=== PATIENT | female | born 1985 | race Caucasian/White ===

== ENCOUNTER 2023-10-06 18:59 | Emergency (ER) | payer OTHER ==
[~2023-10-06] VITALS: Ht 167.6 cm; Wt 70.5 kg
[~2023-10-06 18:59] MED LIST: NAPROSYN500 MG PO
[2023-10-06 19:01] VITALS: TEMP 98.7
[2023-10-06] MEDS ORDERED: Ondansetron 4 MG/2 ML VIAL IV ONE (19:30)
[2023-10-06] MEDS ORDERED: Morphine 4 MG/ML VIAL IV ONE (19:30)
[2023-10-06 19:54] LABS: BASO # 0.1 K/mm3 (0.0-0.2); BASO % 0.7 % (0.0-2.0); EOS # 0.4 K/mm3 (0.0-0.7); EOS % 4.3 % (0.0-4.0); GRAN # 5.8 K/mm3 (1.4-6.5); GRAN % 64.2 % (42.2-75.2); HEMATOCRIT 37.3 % (37.0-47.0); HEMOGLOBIN 12.4 g/dl (12.5-16.0); LYMPH # 2.2 K/mm3 (1.2-3.4); LYMPH % 24.6 % (20.0-51.0); MEAN CELL VOLUME 95 fl (80.0-100.0); MEAN CORPUSCULAR HEMOGLOBIN 32 pg (27-31); MEAN CORPUSCULAR HGB CONC 33 g/dl (33.0-37.0); MEAN PLATELET VOLUME 8.5 fl (7.4-10.4); MONO # 0.6 K/mm3 (0.1-0.6); PLATELET COUNT 178 K/mm3 (130-400); RED BLOOD COUNT 3.92 M/mm3 (4.10-5.30); REDCELL DISTRIBUTION WIDTH-CV 12.5 % (11.5-14.5)
[2023-10-06 20:07] LABS: BILIRUBIN,TOTAL 0.6 mg/dL (0.2-1.2); C-REACTIVE PROTEIN 0.55 mg/dL (0.00-0.50); CALCIUM 9.4 mg/dL (8.4-10.2); CREATININE, serum 0.81 mg/dL (0.57-1.11); POTASSIUM 3.4 mEq/L (3.5-4.5); TOTAL PROTEIN 6.6 g/dl (6.2-8.1)
[2023-10-06 20:30] LABS: URINE APPEARANCE CLEAR (CLEAR/HAZY); URINE BLOOD NEGATIVE (NEGATIVE); URINE COLOR Dark Yellow (YELLOW); URINE GLUCOSE NEGATIVE (NEGATIVE); URINE KETONE 1+ (NEGATIVE); URINE NITRATE NEGATIVE (NEGATIVE); URINE PROTEIN(semi-quant) TRACE (NEGATIVE)
[2023-10-06 20:45] LABS: COLLECTION METHOD CLEAN CATCH
[2023-10-06 22:00] VITALS: BP 106/73; PULSE 65
== END 2023-10-06 22:00 | disposition home or self-care (01) ==
LOC: COL.ER 18:59
PROVIDERS: Family Medicine
DX: N83.299 Other ovarian cyst, unspecified side (principal); Z91.040 Latex allergy status
CPT/HCPCS: J2270; J2405

== ENCOUNTER 2023-10-08 07:16 | Emergency (ER) | payer OTHER ==
[~2023-10-08] VITALS: Ht 167.6 cm; Wt 70.5 kg
[2023-10-08 07:28] VITALS: TEMP 98.2
[2023-10-08] MEDS ORDERED: MOBIC15 MG PO (07:32)
[2023-10-08] MEDS ORDERED: Ondansetron 4 MG/2 ML VIAL IV PRN (08:00)
[2023-10-08] MEDS ORDERED: Morphine 4 MG/ML VIAL IV PRN (08:00)
[2023-10-08] MEDS ORDERED: NS 1,000 ML IV ONE (08:00)
[2023-10-08 08:19] LABS: BASO # 0.1 K/mm3 (0.0-0.2); BASO % 1.2 % (0.0-2.0); EOS # 0.3 K/mm3 (0.0-0.7); EOS % 6.3 % (0.0-4.0); GRAN # 2.9 K/mm3 (1.4-6.5); GRAN % 57.1 % (42.2-75.2); HEMOGLOBIN 12.3 g/dl (12.5-16.0); LYMPH # 1.2 K/mm3 (1.2-3.4); LYMPH % 24.5 % (20.0-51.0); MEAN CELL VOLUME 96 fl (80.0-100.0); MEAN CORPUSCULAR HEMOGLOBIN 32 pg (27-31); MEAN CORPUSCULAR HGB CONC 33 g/dl (33.0-37.0); MEAN PLATELET VOLUME 8.5 fl (7.4-10.4); MONO # 0.5 K/mm3 (0.1-0.6); MONO % 10.7 % (1.7-9.3); PLATELET COUNT 175 K/mm3 (130-400); RED BLOOD COUNT 3.86 M/mm3 (4.10-5.30); REDCELL DISTRIBUTION WIDTH-CV 12.4 % (11.5-14.5)
[2023-10-08 08:20] LABS: HEMATOCRIT 36.9 % (37.0-47.0)
[2023-10-08 08:46] LABS: ALBUMIN 3.8 g/dL (3.5-5.0); BILIRUBIN,TOTAL 0.5 mg/dL (0.2-1.2); CALCIUM 8.7 mg/dL (8.4-10.2); CREATININE, serum 0.7 mg/dL (0.57-1.11); POTASSIUM 3.6 mEq/L (3.5-4.5); TOTAL PROTEIN 6.9 g/dl (6.2-8.1)
[2023-10-08] MEDS ORDERED: NORCO 325 MG-51 TAB PO (10:25)
[2023-10-08 10:41] VITALS: BP 103/76; PULSE 64
== END 2023-10-08 10:49 | disposition home or self-care (01) ==
LOC: COL.ER 07:16
PROVIDERS: Personal Emergency Response Attendant
DX: N83.202 Unspecified ovarian cyst, left side (principal); N93.9 Abnormal uterine and vaginal bleeding, unspecified; Z91.040 Latex allergy status
CPT/HCPCS: J2270; J2405; J7030

== ENCOUNTER 2023-10-13 10:48 | Emergency (ER) | payer OTHER ==
[~2023-10-13] VITALS: Ht 167.6 cm; Wt 70.5 kg
[~2023-10-13 10:48] MED LIST changes: +MOBIC15 MG PO; +NORCO 325 MG-51 TAB PO
[2023-10-13 11:04] VITALS: TEMP 98.9
[2023-10-13 12:25] LABS: COLLECTION METHOD CLEAN CATCH
[2023-10-13 12:36] LABS: URINE APPEARANCE CLEAR (CLEAR/HAZY); URINE BLOOD TRACE (NEGATIVE); URINE COLOR YELLOW (YELLOW); URINE GLUCOSE NEGATIVE (NEGATIVE); URINE KETONE NEGATIVE (NEGATIVE); URINE NITRATE NEGATIVE (NEGATIVE); URINE PROTEIN(semi-quant) NEGATIVE (NEGATIVE); URINE UROBILINOGEN 0.2 E.U/dL (0.2-1.0)
[2023-10-13] MEDS ORDERED: Morphine 10 MG/ML VIAL IM ONE (12:45)
[2023-10-13] MEDS ORDERED: Ketorolac 30 MG/ML VIAL IM ONE (12:45)
[2023-10-13 13:01] LABS: URINE RBC 0-2 /hpf (0-2); URINE WBC 0-2 /hpf (0-2)
[2023-10-13 13:02] LABS: URINE BACTERIA RARE /hpf (NONE SEEN)
[2023-10-13 13:03] LABS: BUDDING YEAST PRESENT (NOT PRESENT)
[2023-10-13] MEDS ORDERED: DIFLUCAN150 MG PO (14:37)
[2023-10-13] MEDS ORDERED: Home HYDROcodone/Acetaminophen 5/325 MG #4 TABS/PACK PO ONE (14:45)
[2023-10-13 14:53] VITALS: BP 121/95; PULSE 54
== END 2023-10-13 14:53 | disposition home or self-care (01) ==
LOC: COL.ER 10:48
PROVIDERS: Nurse Practitioner
DX: B37.31 Acute candidiasis of vulva and vagina (principal); R10.2 Pelvic and perineal pain; F17.210 Nicotine dependence, cigarettes, uncomplicated; Z91.040 Latex allergy status
CPT/HCPCS: J1885; J2270